=== PATIENT | male | born 1990 | race Caucasian/White ===

== ENCOUNTER 2019-04-22 05:26 | Emergency (ER) | payer OTHER, SELFPAY ==
[2019-04-22 05:29] VITALS: BP 148/95; PULSE 105; RESP 16; TEMP 36.6; O2SAT 98; BMI 34.6
--- NOTE | 2019-04-22 05:29 | ED.VIS.GEN ---
History of Present Illness Chief Complaint: Laceration Informant: Patient Onset: Today Context: Sudden Onset Timing: Continuous Current Severity: Moderate Maximum Severity: Moderate Narrative: The patient is an otherwise healthy male who presents to the emergency department laceration to his left index finger. Patient was at work. He states that he was working with metal and incised his finger right at the palmar aspect of the PIP joint. He had immediate pain and bleeding. He placed a dressing presented here. He does not take anticoagulants. He is unsure of his last tetanus shot. Prior similar symptoms: No Recent Illness/Hospitalization: No Past Medical History - Allergies and Home Meds Allergies/Adverse Reactions: Allergies No Known Allergies Allergy (Verified 04/22/19 05:27) Primary Care Physician: Shaan Boswell,Out of [Primary Care Provider] - Prior records reviewed: Yes Past Medical History: - - GERD Surgical History: noncontributory Review of Systems General: Denies: Chills, Fever, Sweats Eyes: Denies: Visual changes - bilaterally, Diplopia ENT: Denies: Rhinorrhea, Sore throat Cardiovascular: Denies: Chest pain, Palpitations Respiratory: Denies: Dyspnea, Cough, Dyspnea on exertion Gastrointestinal: Denies: Abdominal pain, Nausea, Vomiting, Diarrhea, Melena, Hematochezia Genitourinary: Denies: Dysuria, Hematuria, Frequency Musculoskeletal: Denies: Back pain, Extremity Pain Skin: Denies: Rash, Wounds Neurological: Denies: Headache, Weakness, Numbness Physical Exam Inital Vital Signs reviewed: Yes General: Well nourished, Well developed, No Acute Distress Head: Normocephalic, Atraumatic Eyes: Perrl, EOMI ENT: Moist mucous membranes, No rhinorrhea Neck: Supple, Nontender Cardiovascular: Regular rate, Regular rhythm, No murmurs Respiratory: No distress, CTA bilaterally, Chest nontender Abdomen: Soft, Nontender, Nondistended, Normal bowel sounds Back: Nontender, Normal Inspection Extremities: No edema, Tenderness - Patient has a 2 cm laceration on the palmar aspect of the left second digit at the PIP joint. His two-point discrimination is preserved. Flexion of superficialis and profundus are preserved. Cap refill is less than 2 seconds. Skin: Normal color, No rash Neurological: Alert, Oriented x3, Cranial nerves II-XII grossly intact, Normal Strength, Normal Sensation Psychological: Normal affect, Normal Mood Diagnostic/Tx/Re-eval - Medical Decision Making The patient presents for laceration to his left index finger. It did appear deep. The wound was anesthetized with 3 cc of lidocaine 1% without epinephrine. It was irrigated with 250 cc of normal saline and cleaned with chlorhexidine. [place] was placed on the finger. Under a bloodless field, the wound was explored. There was no evidence of arterial injury. There is no evidence of tendinous injury. The wound was closed with 7 simple 4-0 interrupted suture. Bacitracin dressing was placed and the patient was placed in AlumaFoam splint. At this did happen at work, he will follow-up with corporate care. He will be allowed to return to work with the finger bandaged. He will be discharged home. Impression 1. 3 cm left index finger laceration with repair ED Disposition - Plan for ED Patient: Instructions: LACERATION, Hand Referrals: [facility],Care [GROUP OF PHYSICIANS] - 10 Day for suture removal
[2019-04-22] MEDS: Diphth,Pertuss(Acell),Tet Vac 0.5 ML Vial IM (05:56)
[2019-04-22 06:13] VITALS: BP 146/80; PULSE 79; RESP 16; O2SAT 98
== END 2019-04-22 06:49 | disposition home or self-care (01) ==
PROVIDERS: Emergency Provider Emergency Medicine
DX: S61.211A Laceration without foreign body of left index finger without damage to nail, initial encounter (principal); W45.8XXA Other foreign body or object entering through skin, initial encounter; Y93.9 Activity, unspecified; Y92.9 Unspecified place or not applicable; Y99.0 Civilian activity done for income or pay; Z23 Encounter for immunization; K21.9 Gastro-esophageal reflux disease without esophagitis; Z79.899 Other long term (current) drug therapy
CPT/HCPCS: 12002; 90471; 90715; 99284